=== PATIENT | male | born 1955 | race Hispanic/Latino ===

== ENCOUNTER 2019-08-06 13:43 | Inpatient (IN) | payer MEDICARE, MEDICAID ==
[~2019-08-06] VITALS: Ht 167.6 cm; Wt 68.0 kg
[~2019-08-06 13:43] MED LIST: AMBIEN5 MG OR; AMITRIPTYLIN25 MG PO; AMITRIPTYLIN50 MG OR; ARICEPT10 MG OR; ATENOLOL50 MG OR; ATENOLOL50 MG PO; ATORVASTATI80 MG/TAB PO; BAYER ASA325 MG OR; CITALOPRAM20 MG OR; CLOPIDOGREL75 MG PO; FLOMAX0.4 M1 PO; GEMFIBROZIL600 MG OR; GLUCOPHAGE500 MG OR; ISOSORB MONO20 M1 PO; ISOSORB MONO20 MG; ISOSORB MONO20 MG PO; KEFLEX500 MG OR; LEVOTHYROXIN125 MCG PO; LIPITOR80 MG OR; LISINOPRIL20 M1 OR; LISINOPRIL20 MG PO; LOPID600 MG OR; LORTAB 5 OR; METFORMIN500 MG OR; NEURONTIN300 MG PO; NITRO-DUR0.4 MG/HR SL; NITROSTAT0.4 MG PO; NOVOLIN 70/30 SC; PLAVIX75 MG OR; SIMVASTATIN80 MG OR; TENORMIN PO; TENORMIN50 MG PO; TIZANIDINE2 MG PO; TRAMADOL HCL50 MG OR; TRAMADOL HCL50 MG PO; VITAMIN D50000 UNIT; XANAX0.25 MG PO; ZESTRIL2.5 MG OR; ZOCOR20 M1 PO; ZOLPIDEM5 MG OR
[2019-08-06 15:14] LABS: IMMATURE GRANULOCYTES 0.3 % (0.0-5.0); MEAN CELL VOLUME 86.5 fL CALC (80.0-100.0); MEAN CORPUSCULAR HGB 29.4 pG CALC (26.0-32.0); NEUT# 4.69 thou/uL (1.82-7.42); RED BLOOD COUNT 4.08 mill/uL (4.70-6.10); RED CELL DISTRI WIDTH 12.5 % (11.5-15.5)
[2019-08-06 15:15] LABS: HEMATOCRIT 35.3 % (39.0-50.0)
[2019-08-06 15:26] LABS: BILIRUBIN, TOTAL 0.4 mg/dL (0.0-1.4); TOTAL PROTEIN 7.4 g/dL (6.3-8.2)
[2019-08-06 15:32] LABS: CREATININE 4.6 mg/dL (0.7-1.3); POTASSIUM 5.6 mmol/l (3.5-5.1)
[2019-08-06 16:37] LABS: URINE BILIRUBIN - DIPSTICK NEGATIVE (NEGATIVE); URINE BLOOD DIPSTICK TRACE-INTACT (NEGATIVE); URINE COLOR YELLOW; URINE GLUCOSE - DIPSTICK >=1000 mg/dL (NEGATIVE); URINE KETONE NEGATIVE (NEGATIVE); URINE LEUK ESTERASE NEGATIVE (NEGATIVE); URINE NITRITE - DIPSTICK NEGATIVE (Negative); URINE PROTEIN - DIPSTICK 100 mg/dL (NEG-TRACE); URINE UROBILINOGEN - DIPSTICK 0.2 E.U./dL (0.2)
[2019-08-06 16:39] LABS: URINE RBC 0-2 RBC/hpf (0-5); URINE WBC 0-2 WBC/hpf (0-5)
[2019-08-06 16:42] LABS: BARBITURATES NEGATIVE (NEGATIVE); COCAINE NEGATIVE (NEGATIVE); METHADONE NEGATIVE (NEGATIVE); OXCYCODONE NEGATIVE (NEGATIVE); TETRAHYDROCANNABIONOL NEGATIVE (NEGATIVE); TRICYLIC ANTIDEPRESSANTS NEGATIVE (NEGATIVE)
[2019-08-06 20:36] VITALS: BP 147/82
[2019-08-07] VITALS (10 sets, daily range): BP systolic 135–194; BP diastolic 59–88
[2019-08-07 06:35] LABS: HEMATOCRIT 35.8 % (39.0-50.0); HEMOGLOBIN 12.2 g/dl (14.0-18.0); MEAN CELL VOLUME 86.3 fL CALC (80.0-100.0); MEAN CORPUSCULAR HGB 29.4 pG CALC (26.0-32.0); MEAN CORPUSCULAR HGB CONC 34.1 g/L CALC (32.0-36.0); RED BLOOD COUNT 4.15 mill/uL (4.70-6.10); RED CELL DISTRI WIDTH 12.5 % (11.5-15.5)
[2019-08-07 06:47] LABS: ALBUMIN 3.2 g/dL (3.2-5.0); CHOLESTEROL HDL RATIO 7.2 (<4.4 (CALC)); CREATININE 4.1 mg/dL (0.7-1.3); POTASSIUM 4.6 mmol/l (3.5-5.1)
[2019-08-07] MEDS ORDERED: LEVOTHYROXIN150 MC1 PO (09:50)
== END 2019-08-07 23:00 | disposition short-term general hospital (02) | DRG 638 ==
LOC: ED 13:43 → ED-I 17:00 → ED 17:52 → MS2 17:53
PROVIDERS: Emergency Medicine; ADMIT Internal Medicine; ATTEND Internal Medicine
DX: E11.65 Type 2 diabetes mellitus with hyperglycemia (principal); N17.9 Acute kidney failure, unspecified; I16.0 Hypertensive urgency; E11.22 Type 2 diabetes mellitus with diabetic chronic kidney disease; I12.9 Hypertensive chronic kidney disease with stage 1 through stage 4 chronic kidney disease, or unspecified chronic kidney disease; N18.3 Chronic kidney disease, stage 3 (moderate); R79.89 Other specified abnormal findings of blood chemistry; R56.9 Unspecified convulsions; I25.10 Atherosclerotic heart disease of native coronary artery without angina pectoris; E03.9 Hypothyroidism, unspecified; N40.0 Benign prostatic hyperplasia without lower urinary tract symptoms; T38.3X6A Underdosing of insulin and oral hypoglycemic [antidiabetic] drugs, initial encounter; T45.526A Underdosing of antithrombotic drugs, initial encounter; T44.7X6A Underdosing of beta-adrenoreceptor antagonists, initial encounter; T46.4X6A Underdosing of angiotensin-converting-enzyme inhibitors, initial encounter; T38.1X6A Underdosing of thyroid hormones and substitutes, initial encounter; T46.6X6A Underdosing of antihyperlipidemic and antiarteriosclerotic drugs, initial encounter; T39.016A Underdosing of aspirin, initial encounter; M25.552 Pain in left hip; M25.551 Pain in right hip; I25.2 Old myocardial infarction; Z91.128 Patient's intentional underdosing of medication regimen for other reason; Z79.4 Long term (current) use of insulin; Z86.73 Personal history of transient ischemic attack (TIA), and cerebral infarction without residual deficits; Z95.5 Presence of coronary angioplasty implant and graft

== ENCOUNTER 2019-09-08 14:10 | Emergency (ER) | payer MEDICARE, MEDICAID ==
[~2019-09-08] VITALS: Ht 167.6 cm; Wt 80.0 kg
[~2019-09-08 14:10] MED LIST changes: +LEVOTHYROXIN150 MC1 PO
[2019-09-08 14:36] LABS: IMMATURE GRANULOCYTES 0.4 % (0.0-5.0); MEAN CELL VOLUME 88.7 fL CALC (80.0-100.0); MEAN CORPUSCULAR HGB 28.9 pG CALC (26.0-32.0); MEAN CORPUSCULAR HGB CONC 32.6 g/L CALC (32.0-36.0); NEUT# 6.36 thou/uL (1.82-7.42); RED BLOOD COUNT 3.18 mill/uL (4.70-6.10); RED CELL DISTRI WIDTH 13.1 % (11.5-15.5)
[2019-09-08 14:51] LABS: URINE BILIRUBIN - DIPSTICK NEGATIVE (NEGATIVE); URINE BLOOD DIPSTICK TRACE-INTACT (NEGATIVE); URINE COLOR YELLOW; URINE GLUCOSE - DIPSTICK 100 mg/dL (NEGATIVE); URINE KETONE NEGATIVE (NEGATIVE); URINE LEUK ESTERASE NEGATIVE (NEGATIVE); URINE NITRITE - DIPSTICK NEGATIVE (Negative); URINE PROTEIN - DIPSTICK 100 mg/dL (NEG-TRACE); URINE SPECIFIC GRAVITY 1.015; URINE UROBILINOGEN - DIPSTICK 0.2 E.U./dL (0.2)
[2019-09-08 14:52] LABS: PROTHROMBIN TIME 10.5 SECONDS (9.0-12.5)
[2019-09-08 14:54] LABS: ALBUMIN 2.9 g/dL (3.2-5.0); BILIRUBIN, TOTAL 0.3 mg/dL (0.0-1.4); POTASSIUM 3.7 mmol/l (3.5-5.1); TOTAL PROTEIN 5.9 g/dL (6.3-8.2)
[2019-09-08 15:07] LABS: HEMATOCRIT 28.2 % (39.0-50.0); HEMOGLOBIN 9.2 g/dl (14.0-18.0)
[2019-09-08] MEDS ORDERED: B-COMPLEX-C PO (15:13)
[2019-09-08] MEDS ORDERED: B-121000 MC4 PO (15:14)
[2019-09-08] MEDS ORDERED: ACID CONTROL MA20 MG PO (15:14)
[2019-09-08] MEDS ORDERED: HUMALOG100 UNIT/M SC (15:15)
[2019-09-08] MEDS ORDERED: ISOSORB MONO20 M1 PO (15:16)
[2019-09-08 15:17] LABS: URINE AMORPH SEDIMENT FEW hpf (NONE-FER); URINE MUCUS MODERATE hpf (NONE-FEW); URINE SQUAMOUS EPITHELIAL CELL FEW EPI/hpf (0-FEW)
[2019-09-08] MEDS ORDERED: NIFEDIPINE ER30 M1 PO (15:17)
[2019-09-08] MEDS ORDERED: RENAL VITE (15:17)
[2019-09-08] MEDS ORDERED: CARVEDILOL12.5 MG PO (15:19)
[2019-09-08] MEDS ORDERED: COREG12.5 MG PO (15:19)
[2019-09-08] MEDS ORDERED: NOVOLIN 70/30 INNLT SC (15:20)
[2019-09-08] MEDS ORDERED: ATORVASTATIN CA80 MG PO (15:22)
[2019-09-08 16:43] VITALS: BP 144/65
== END 2019-09-08 16:46 ==
LOC: ED 14:10
DX: E11.649 Type 2 diabetes mellitus with hypoglycemia without coma (principal); I95.3 Hypotension of hemodialysis; E11.22 Type 2 diabetes mellitus with diabetic chronic kidney disease; I12.0 Hypertensive chronic kidney disease with stage 5 chronic kidney disease or end stage renal disease; N18.6 End stage renal disease; I25.2 Old myocardial infarction; Z79.4 Long term (current) use of insulin; Z86.73 Personal history of transient ischemic attack (TIA), and cerebral infarction without residual deficits; Z99.2 Dependence on renal dialysis